=== PATIENT | male | born 1960 | race American Indian/Alaskan Native ===

== ENCOUNTER 2017-07-29 15:09 | Emergency (ER) | payer SELFPAY ==
--- NOTE | 2017-07-29 17:30 | Emergency Department Report ---
HPI - General Chief Complaint: Headache Time Seen by Provider: 07/29/17 17:19 - HPI HPI: 57-year-old [place] male presents to the emergency department with complaint of having had no sleep for the past 5 nights. He tried some [id number] medications including Benadryl, NyQuil and melatonin and that did not work. He then tried to get some sleep by drinking some alcohol and he says that worked for about one or 2 hours but no more. It has caused him to feel very drained. He denies any other previous histories of insomnia. He denies any past medical history. He does not currently have a primary care physician. He denies any fever, chest pain, shortness of breath, nausea, vomiting. ED Past Medical Hx - Past Medical History Previous Medical History?: Yes Hx Arthritis: Yes Hx Asthma: Yes - Surgical History Past Surgical History?: No - Social History Smoking Status: Current Some Day Smoker Substance Use Type: Alcohol, Marijuana - Medications Home Medications: Home Medications Medication Instructions Recorded Confirmed Last Taken Type ALPRAZolam [Xanax TAB] 0.5 mg PO QHS PRN #5 tablet 07/29/17 Unknown Rx ED Review of Systems ROS: Stated complaint: NO SLEEP Other details as noted in HPI Comment: All other systems reviewed and negative Constitutional: denies: chills, fever Eyes: denies: eye pain, eye discharge, vision change ENT: denies: ear pain, throat pain Respiratory: denies: cough, shortness of breath, wheezing Cardiovascular: denies: chest pain, palpitations Gastrointestinal: denies: abdominal pain, nausea, diarrhea Genitourinary: denies: urgency, dysuria Musculoskeletal: denies: back pain, joint swelling, arthralgia Skin: denies: rash, lesions Neurological: denies: weakness, numbness Physical Exam - Physical Exam Vital Signs: Vital Signs 07/29/17 15:35 Temperature 98.4 F Pulse Rate 88 Respiratory 18 Rate Blood Pressure 124/90 O2 Sat by Pulse 98 Oximetry Physical Exam: GENERAL: The patient is well-developed well-nourished. HENT: Normocephalic. Atraumatic. Patient has moist mucous membranes. EYES: Extraocular motions are intact. Pupils equal reactive to light bilaterally. NECK: Supple. Trachea is midline. CHEST/LUNGS: Clear to auscultation. There is no respiratory distress noted. HEART/CARDIOVASCULAR: Regular. There is no tachycardia. There is no murmur. ABDOMEN: Abdomen is soft, nontender. Patient has normal bowel sounds. There is no abdominal distention. SKIN: Skin is warm and dry. NEURO: The patient is awake, alert, and oriented. The patient is cooperative. The patient has no focal neurologic deficits. The patient has normal speech and gait. Cranial nerves II through XII grossly intact. MUSCULOSKELETAL: There is no tenderness or deformity. There is no evidence of acute injury. ED Course Vital Signs 07/29/17 15:35 Temperature 98.4 F Pulse Rate 88 Respiratory 18 Rate Blood Pressure 124/90 O2 Sat by Pulse 98 Oximetry ED Medical Decision Making - Medical Decision Making The patient's main complaint for coming in today is insomnia. He says he has not gotten much sleep over the past 5 days and this is despite trying some over- the-counter medications. He does not have any focal, motor or sensory deficits and his cranial nerves are intact. We discussed his sleep habits. He denies any use of stimulants or any illicit drugs that may be causing his symptoms. I agreed to give the patient a very small amount of low-dose Xanax to try to help him with his sleep. I think his medication is helpful for him as he can sometimes be sedating plus he says that he sits there when he cannot sleep and his mind is racing and he gets anxious psychic and will have a double benefit. However I expressed the importance that this medication cannot be taken with alcohol of any quantity and expressed that the side effects of doing so would be respiratory depression and that he could stop breathing. He understands this and says that he will not use any alcohol or any other sedating medications in conjunction with the Xanax. He has been given referrals for multiple primary care clinics in the area. He has been instructed to return to the emergency Department with any worsening of symptoms or any acute distress. Critical Care Time: No Critical care attestation.: If time is entered above; I have spent that time in minutes in the direct care of this critically ill patient, excluding procedure time. ED Disposition Clinical Impression: Insomnia Qualifiers: Insomnia type: unspecified Qualified Code(s): G47.00 - Insomnia, unspecified Disposition: DC- TO HOME OR SELFCARE Is pt being admited?: No Condition: Stable Instructions: Insomnia (ED) Additional Instructions: Please follow-up with a primary care physician or a primary care clinic in the next few days without fail. Return to the emergency Department with any worsening of your symptoms or any acute distress. I have prescribed a medication to take to help you get some sleep at night. He should take it about 45 minutes to one hour prior to going to sleep and only take it once you are at home for the night. He cannot be taken prior to driving , working, or being responsible for children. This medication can already be sedating and therefore cannot be mixed with any alcohol of any quantity or else there could be increased sedation and respiratory depression causing you to stop breathing. Prescriptions: ALPRAZolam [Xanax TAB] 0.5 mg PO QHS PRN #5 tablet PRN Reason: Sleep Referrals: PRIMARY CARE [Primary Care Provider] - 3-5 Days [facility] [Outside] - 3-5 Days [facility] [Outside] - 3-5 Days [facility] [Outside] - 3-5 Days [facility] [Outside] - 3-5 Days Time of Disposition: 17:33
[2017-07-29 17:47] VITALS: BP 136/76
== END 2017-07-29 17:47 | disposition home or self-care (01) ==
LOC: ED 15:09
DX: G47.00 Insomnia, unspecified (principal); J45.909 Unspecified asthma, uncomplicated; M19.90 Unspecified osteoarthritis, unspecified site; F17.200 Nicotine dependence, unspecified, uncomplicated; F12.10 Cannabis abuse, uncomplicated
CPT/HCPCS: 99282